=== PATIENT | female | born 1970 | race American Indian/Alaskan Native ===

== ENCOUNTER 2016-04-16 18:36 | Emergency (ER) | payer MEDICAID ==
[2016-04-16 19:01] VITALS: BP 144/101
--- NOTE | 2016-04-16 20:25 | Emergency Department Report ---
Chief Complaint: Chest Pain Stated Complaint: CHEST PAIN Time Seen by Provider: 04/16/16 20:08 - HPI History of Present Illness: 45-year-old female presents with mid chest pain 1 month that comes and goes. Patient states she's been taking Zantac and Pepto-Bismol with symptomatic relief. She complains of constant mid chest pain 8 hours that is sharp in nature. Denies fever, chills, nausea, vomiting, abdominal pain. - ROS Review of Systems: Per HPI - Exam Vital Signs: Vital Signs 04/16/16 18:58 Temperature 98.8 F Pulse Rate 108 H Respiratory 18 Rate Blood Pressure 144/101 O2 Sat by Pulse 100 Oximetry Physical Exam: General: A 45-year-old female in no acute distress. Well-developed, well- nourished. CV: Tachycardic. Regular rhythm. Lungs: Clear to auscultation bilaterally. MSE screening note: Focused history and physical exam performed. Due to findings the following was ordered: ED Disposition for MSE Condition: Stable
[2016-04-16 21:09] LABS: Hematocrit 36.3 % (30.3-42.9); Mean Corpuscular HGB Conc 33 % (30-34); Mean Corpuscular Hemoglobin 31 pg (28-32); Mean Corpuscular Volume 94 fl (79-97); Platelet Count 329 K/mm3 (140-440); Red Blood Count 3.88 M/mm3 (3.65-5.03); Red Cell Distribution Width 14.1 % (13.2-15.2)
[2016-04-16 21:28] LABS: Alanine Aminotransferase 15 units/L (7-56); Albumin 4.1 g/dL (3.9-5); Albumin/Globulin Ratio 1.1 %; Alkaline Phosphatase 84 units/L (35-129); Anion Gap 18 mmol/L; BUN/Creatinine Ratio 12.14; Bilirubin,Total 0.2 mg/dL (0.1-1.2); Blood Urea Nitrogen 17 mg/dL (7-17); Calcium 9.3 mg/dL (8.4-10.2); Carbon Dioxide 21 mmol/L (22-30); Chloride 99.4 mmol/L (98-107); Creatine Kinase 496 units/L (30-135); Glucose 97 mg/dL (65-100); Lipase 44 units/L (13-60); Potassium 3.8 mmol/L (3.6-5.0); Sodium 135 mmol/L (137-145); Total Protein 7.8 g/dL (6.3-8.2)
[2016-04-16 21:29] LABS: Bilirubin,Direct < 0.2 mg/dL (0-0.2)
[2016-04-16 22:12] LABS: Basophils % (Manual) 0 % (0.0-1.8); Blastocytes % (Manual) 0 %
[2016-04-16 22:13] LABS: Diff Status Complete; RBC Morphology Normal
--- NOTE | 2016-04-17 10:45 | XRay Report ---
ROUTINE CHEST, TWO VIEWS: HISTORY: chest pain. The trachea, heart, mediastinal contour, lung garcia and bony thorax are unremarkable. IMPRESSION: Unremarkable chest x-ray. No change since 11/08/11.
--- NOTE | 2016-04-19 22:15 | ED Elopement Review ---
ED Pt Elopement review - Results review Lab results: Laboratory Tests 04/16/16 04/16/16 04/16/16 20:27 20:27 23:38 WBC 9.0 RBC 3.88 Hgb 12.0 Hct 36.3 MCV 94 MCH 31 MCHC 33 RDW 14.1 Plt Count 329 Lymph # [employer] Add Manual Diff Complete Total Counted 100 Seg Neuts % (Manual) 43.0 Band Neutrophils % 0 Lymphocytes % (Manual) 53.0 H Reactive Lymphs % (Man) 0 Monocytes % (Manual) 3.0 Eosinophils % (Manual) 1.0 Basophils % (Manual) 0 Metamyelocytes % 0 Myelocytes % 0 Promyelocytes % 0 Blast Cells % 0 Nucleated RBC % Not Reportable Seg Neutrophils # Man 3.9 Band Neutrophils # 0.0 Lymphocytes # (Manual) 4.8 Abs React Lymphs (Man) 0.0 Monocytes # (Manual) 0.3 Eosinophils # (Manual) 0.1 Basophils # (Manual) 0.0 Metamyelocytes # 0.0 Myelocytes # 0.0 Promyelocytes # 0.0 Blast Cells # 0.0 WBC Morphology Not Reportable Hypersegmented Neuts Not Reportable Hyposegmented Neuts Not Reportable Hypogranular Neuts Not Reportable Smudge Cells Not Reportable Toxic Granulation Not Reportable Toxic Vacuolation Not Reportable Dohle Bodies Not Reportable Pelger-Huet Anomaly Not Reportable Orestes Rods Not Reportable Platelet Estimate Appears normal Clumped Platelets Not Reportable Plt Clumps, EDTA Not Reportable Large Platelets Not Reportable Giant Platelets Not Reportable Platelet Satelliting Not Reportable Plt Morphology Comment Not Reportable RBC Morphology Normal Dimorphic RBCs Not Reportable Polychromasia Not Reportable Hypochromasia Not Reportable Poikilocytosis Not Reportable Anisocytosis Not Reportable Microcytosis Not Reportable Macrocytosis Not Reportable Spherocytes Not Reportable Pappenheimer Bodies Not Reportable Sickle Cells Not Reportable Target Cells Not Reportable Tear Drop Cells Not Reportable Ovalocytes Not Reportable Helmet Cells Not Reportable Merritt-Veblen Bodies Not Reportable [place] Rings Not Reportable Delfina Cells Not Reportable Bite Cells Not Reportable Crenated Cell Not Reportable Elliptocytes Not Reportable Acanthocytes (Spur) Not Reportable Rouleaux Not Reportable Hemoglobin C Crystals Not Reportable Schistocytes Not Reportable Malaria parasites Not Reportable Nilson Bodies Not Reportable Hem Pathologist Commnt No Sodium 135 L Potassium 3.8 Chloride 99.4 Carbon Dioxide 21 L Anion Gap 18 BUN 17 Creatinine 1.4 H Estimated GFR 49 BUN/Creatinine Ratio 12.14 Glucose 97 Calcium 9.3 Total Bilirubin 0.2 Direct Bilirubin < 0.2 Indirect Bilirubin 0.0 AST 20 ALT 15 Alkaline Phosphatase 84 Total Creatine Kinase 496 H CK-MB (CK-2) 3.0 CK-MB (CK-2) Rel Index 0.6 Troponin T < 0.010 < 0.010 Total Protein 7.8 Albumin 4.1 Albumin/Globulin Ratio 1.1 Lipase 44 - Call Back decision Pt Call Back Decision: No action required
== END 2016-04-16 20:27 | disposition left against medical advice (07) ==
LOC: ED 18:36
DX: R07.9 Chest pain, unspecified (principal); Z53.21 Procedure and treatment not carried out due to patient leaving prior to being seen by health care provider
CPT/HCPCS: 36415; 71020; 80048; 80074; 82550; 82553; 83690; 84484; 85007; 85025; 93005; 93010